=== PATIENT | female | born 1950 | race Caucasian/White ===

== ENCOUNTER 2023-06-19 04:03 | Day surgery (SDC) | payer OTHER, MEDICARE ==
[2023-06-17 11:24] VITALS: BMI 24.4
[2023-06-19] MEDS ORDERED: BUPIVACAINE HCL/PF 0.5% (5MG/ML) 10 ML VIAL IJ ONE ×2 (11:28→13:46)
[2023-06-19] MEDS ORDERED: LIDOCAINE 1% P/F 10 MG/ML VIAL INF ONE ×2 (11:28→13:46)
[2023-06-19] MEDS ORDERED: PROPOFOL 40 ML ONE (12:35)
[2023-06-19] MEDS ORDERED: MIDAZOLAM HCL 2 MG/2 ML SINGLE DOSE VIAL ONE (12:35)
[2023-06-19] MEDS ORDERED: LIDOCAINE HCL/PF 1% SDV 5ML VIAL ONE (12:50)
[2023-06-19] MEDS ORDERED: ceFAZolin SODIUM 1 GM VIAL ONE (13:32)
[2023-06-19] MEDS ORDERED: ONDANSETRON 4 MG/2 ML VIAL ONE (13:32)
[2023-06-19] MEDS ORDERED: KETOROLAC TROMETHAMINE 30 MG/1 ML VIAL ONE (13:32)
[2023-06-19] MEDS ORDERED: DEXAMETHASONE SOD PHOSPHATE 4 MG/1 ML VIAL ONE (13:32)
[2023-06-19] MEDS ORDERED: ceFAZolin SODIUM 1 GM VIAL IVPB ONE (13:40)
[2023-06-19 15:17] VITALS: RESP 18
[2023-06-19 15:19] VITALS: BP 107/50; PULSE 71; TEMP 98.2
== END 2023-06-19 17:20 | disposition home or self-care (01) ==
LOC: JASU-SURG 04:03
PROVIDERS: ATTEND Orthopaedic Surgery
PROC: 0LB60ZZ Excision of Left Lower Arm and Wrist Tendon, Open Approach (ICD-10-PCS; principal; 2023-06-19 13:30)
DX: M67.432 Ganglion, left wrist (principal)
CPT/HCPCS: 88304-TC

== ENCOUNTER 2023-07-05 16:46 | Emergency (ER) | payer OTHER, MEDICARE ==
[2023-07-05 16:58] VITALS: BP 118/60; PULSE 72; RESP 18; TEMP 98.5; BMI 24.4
[2023-07-05] MEDS ORDERED: DALBAVANCIN HCL 1,500 MG in DEXTROSE 5%-WATER - 500 ML IVPB ONE (17:39)
[2023-07-05] MEDS ORDERED: AMPICILLIN NA/SULBACTAM NA 3 GM in SODIUM CHLORIDE 100 ML IVPB ONE (17:39)
[2023-07-05] MEDS ORDERED: AMPICILLIN NA/SULBACTAM NA 3 GM VIAL ONE (17:51)
[2023-07-05] MEDS ORDERED: DALBAVANCIN HCL 500 MG VIAL (RESTRICTED TO ID ONLY) IVPB ONE ×2 (18:21→18:33)
[2023-07-05 18:25] LABS: BASO % 0.7 % (0-2.0); EOS % 3.1 % (0-4.5); HEMATOCRIT 38.8 % (32.4-45.2); HEMOGLOBIN 13.2 GM/dL (10.7-15.3); LYMPH % 18.1 % (8-40); MCH 32.8 pg (25.7-33.7); MEAN CELL VOLUME 96.5 fl (80-96); MEAN PLT VOLUME 7.6 fl (7.5-11.1); MONO % 9.9 % (3.8-10.2); NEUT % 68.2 % (42.8-82.8); PLATELET COUNT 398 10^3/uL (134-434); RBC 4.02 M/mm3 (3.60-5.2); RDW 13.7 % (11.6-15.6); WHITE BLOOD COUNT 7.8 K/mm3 (4.0-10.0)
[2023-07-05 18:44] LABS: POTASSIUM 4.6 mmol/L (3.5-5.1)
[2023-07-05 18:46] LABS: ALBUMIN 3.4 g/dl (3.4-5.0); BLOOD UREA NITROGEN 26.6 mg/dL (7-18)
[2023-07-05 18:49] LABS: CREATININE 0.9 mg/dL (0.55-1.3)
[2023-07-05 18:52] LABS: BILIRUBIN,TOTAL 0.3 mg/dL (0.2-1); TOT PROT 6.4 g/dl (6.4-8.2)
[2023-07-05] MEDS ORDERED: DIPHTH,PERTUSS(ACELL),TET 0.5 ML DISP.SYRIN IM ONE ×2 (20:10→20:18)
== END 2023-07-05 20:51 | disposition home or self-care (01) ==
LOC: JER 16:46
PROC: 3E03329 Introduction of Other Anti-infective into Peripheral Vein, Percutaneous Approach (ICD-10-PCS; principal; 2023-07-05)
PROC: 3E03329 Introduction of Other Anti-infective into Peripheral Vein, Percutaneous Approach (ICD-10-PCS; 2023-07-05)
PROC: 3E0234Z Introduction of Serum, Toxoid and Vaccine into Muscle, Percutaneous Approach (ICD-10-PCS; 2023-07-05)
DX: S61.451A Open bite of right hand, initial encounter (principal); R22.31 Localized swelling, mass and lump, right upper limb; L03.113 Cellulitis of right upper limb; W55.01XA Bitten by cat, initial encounter
CPT/HCPCS: 36415; 80053; 85025; 90471; 90715; 96365; 96368; 99284-25; J0875

== ENCOUNTER 2024-04-30 04:13 | Day surgery (SDC) | payer OTHER ==
[2024-04-29 13:27] VITALS: BMI 24.4
[2024-04-30] MEDS ORDERED: LIDOCAINE HCL/PF 1% SDV 5ML VIAL ONE ×2 (07:22→10:12)
[2024-04-30] MEDS ORDERED: BUPIVACAINE HCL/PF 0.25% (2.5MG/ML) 10 ML VIAL ONE (08:16)
[2024-04-30] MEDS ORDERED: MIDAZOLAM HCL 2 MG/2 ML SINGLE DOSE VIAL ONE (09:47)
[2024-04-30] MEDS ORDERED: LIDOCAINE HCL/PF 2% SDV 5ML VIAL ONE (10:37)
[2024-04-30] MEDS: LIDOCAINE HCL/PF 2% SDV 5ML VIAL PNB ONE (10:50)
[2024-04-30] MEDS: LIDOCAINE 1% P/F 10 MG/ML VIAL SNB ONE (10:51)
[2024-04-30 11:33] VITALS: RESP 16
[2024-04-30 12:54] VITALS: BP 97/58; PULSE 88; TEMP 98.7
== END 2024-04-30 14:05 | disposition home or self-care (01) ==
LOC: JASU-SURG 04:13
PROVIDERS: ATTEND Pain Medicine Pain Medicine
PROC: 00HU3MZ Insertion of Neurostimulator Lead into Spinal Canal, Percutaneous Approach (ICD-10-PCS; principal; 2024-04-30 09:00)
DX: M96.1 Postlaminectomy syndrome, not elsewhere classified (principal); M54.16 Radiculopathy, lumbar region
CPT/HCPCS: 63650; C1897; 76000-TC-FY; C1889

== ENCOUNTER 2024-06-11 04:41 | Day surgery (SDC) | payer OTHER ==
[2024-06-09 11:55] VITALS: BMI 26.4
[2024-06-11] MEDS ORDERED: BUPIVACAINE HCL/PF 0.5% (5MG/ML) 10 ML VIAL ONE (07:28)
[2024-06-11] MEDS ORDERED: TRIAMCINOLONE ACET 40MG/1ML VIAL ONE (07:28)
[2024-06-11] MEDS ORDERED: LIDOCAINE HCL/PF 1% SDV 5ML VIAL ONE (07:29)
[2024-06-11] MEDS ORDERED: ACETAMINOPHEN 500 MG TABLET (FP) PO PRN (09:25)
[2024-06-11] MEDS: LIDOCAINE HCL 1% PRESERVATIVE FREE - 30ML VIAL IJ ONE (09:58)
[2024-06-11] MEDS: IOHEXOL 180 MG/1 ML ML IJ ONE (09:59)
[2024-06-11] MEDS: BUPIVACAINE HCL/PF 0.5% (5MG/ML) 10 ML VIAL IJ ONE (10:00)
[2024-06-11] MEDS: TRIAMCINOLONE ACET 40MG/1ML VIAL IJ ONE (10:00)
[2024-06-11 10:18] VITALS: PULSE 68; RESP 18
[2024-06-11 11:00] VITALS: BP 130/70; TEMP 97
== END 2024-06-11 11:06 | disposition home or self-care (01) ==
LOC: JASU-SURG 04:41
PROVIDERS: ATTEND Pain Medicine Pain Medicine
PROC: 3E0U3BZ Introduction of Anesthetic Agent into Joints, Percutaneous Approach (ICD-10-PCS; 2024-06-11)
PROC: 3E0U33Z Introduction of Anti-inflammatory into Joints, Percutaneous Approach (ICD-10-PCS; principal; 2024-06-11 09:45)
DX: M53.3 Sacrococcygeal disorders, not elsewhere classified (principal)
CPT/HCPCS: 76000-TC-FY

== ENCOUNTER 2024-09-10 04:32 | Day surgery (SDC) | payer OTHER ==
[2024-09-03 11:36] VITALS: BMI 27.9
[2024-09-10 12:31] VITALS: RESP 16
[2024-09-10 15:16] VITALS: TEMP 98.8
[2024-09-10 15:23] VITALS: BP 110/50; PULSE 65
== END 2024-09-10 15:15 | disposition home or self-care (01) ==
LOC: JASU-ENDO 04:32
PROVIDERS: ATTEND Student in an Organized Health Care Education/Training Program
PROC: 0DB68ZX Excision of Stomach, Via Natural or Artificial Opening Endoscopic, Diagnostic (ICD-10-PCS; 2024-09-10)
PROC: 0DBN8ZX Excision of Sigmoid Colon, Via Natural or Artificial Opening Endoscopic, Diagnostic (ICD-10-PCS; principal; 2024-09-10 12:45)
DX: Z12.11 Encounter for screening for malignant neoplasm of colon (principal); D12.5 Benign neoplasm of sigmoid colon; K29.50 Unspecified chronic gastritis without bleeding; Z98.84 Bariatric surgery status; Z87.19 Personal history of other diseases of the digestive system
CPT/HCPCS: 88305-TC; 88342-TC